=== PATIENT | female | born 1945 | race Caucasian/White ===

== ENCOUNTER 2018-11-02 06:01 | Day surgery (SDC) | payer OTHER, SELFPAY ==
[2018-10-29 12:46] VITALS: BMI 30.5
[2018-11-02] VITALS (8 sets, daily range): BP systolic 123–141; BP diastolic 42–78; PULSE 68–91; RESP 10–16; TEMP 36–36.8; O2SAT 93–96; BMI 30.5
[2018-11-02] MEDS: LACTATED RINGERS 1,000 ML 42 ML IV ×2 (07:10→09:48)
[2018-11-02] MEDS: CEFAZOLIN 2 GM/100 ML FROZ.PIGGY IV (08:00)
--- NOTE | 2018-11-02 08:00 | PM.PREOP ---
Pre-operative Note Interval Note Pre-op Check: Yes History & Physical Reviewed by Physician Changes: No
--- NOTE | 2018-11-02 08:43 | SUR.OPER ---
Beach chair with Shai/Nanda shoulder positioner. Lower body on padded OR bed. Head in foam padded head cradle, secured with straps. Non-operative arm secured <90 degrees abduction. Pillow under knees. Safety belt at thigh. Cloth tape over blanket over lower legs.
[2018-11-02] MEDS: BUPIVACAINE 0.5% W/ EPI (PF) VIAL 30 ML INJ (09:12)
--- NOTE | 2018-11-02 10:29 | PM.OP.1 ---
Operative Date/Time/Diagnoses Date of procedure: 11/02/18 Time of procedure: 08:33 Pre-op diagnosis: Massive rotator cuff tear right shoulder Post-op diagnosis: same Procedure & Clinicians Procedure: Arthroscopic subacromial decompression and distal clavicle excision with open rotator cuff repair Same procedure as scheduled: Yes Indications: Massive rotator cuff tear right shoulder Surgeon: Gen Chapa Glacing Machine Tender: Connie Sahu Anesthesia Type: General and Peripheral nerve block Operative Notes Findings: Massive rotator cuff tear involving all of the supraspinatus and infraspinatus with retraction beyond the rim of the glenoid. Some early stage arthritic changes to the glenohumeral joint. No sign of any loose bodies. No sign of any high riding humeral head. 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 Closure Type: primary Specimen(s): none sent Implants & Drains: One medial anchor and 3 lateral anchors were used. Applied: implant(s) Estimated Blood Loss (mL): 10 Blood products transfused: none Procedure in detail: On date of service, Patient was met in the holding area. The operative site was signed and witnessed by the OR staff. The surgeries once again discussed with the patient and any remaining questions they had were answered fully. Patient was taken back to the operating theater and placed on the operating table in a supine position. Great care was taken to ensure that all bony prominences were properly padded. Patient was then placed into the beach chair position. The head and neck were properly positioned and secured. A timeout was performed verifying patient's name, procedure, and the operative site. The upper extremity was then prepped and draped in the normal sterile fashion. Previously, the bony anatomy and portal sites were marked out as well as injected with Marcaine with epinephrine. An 11 blade was used to make an incision in the posterior aspect of the shoulder. The camera was placed, and a diagnostic shoulder scope was performed. Findings listed above. Next under direct visualization, a anterior portal was made. A shaver was brought in and Extensive debridement of the glenohumeral joint was performed. Patient had signs of fraying to the labrum. There is no sign of any instability to the glenohumeral joint. Next the camera was placed into the subacromial space. A lateral portal was obtained under direct visualization. A combination of the shaver and vapor wand, a debridement of the inflamed tissue as well as inflamed bursa was performed. The lateral gutter was also cleaned out. This gave us good visualization of the bursal aspect of the rotator cuff as well as the acromial arch. There was a large rotator cuff tear with significant retraction. A good portion of the humeral head was exposed. Next, a 6 mm bur was used to perform a subacromial decompression. The same bur was then used to do a distal clavicle excision. Due to the size of the rotator cuff tear was decided to switch to an open procedure. The anterior lateral portal was enlarged for a mini open repair. This gave us good visualization of the rotator cuff tear. 2. FiberWire was passed into 3 separate spots to be used as traction sutures. Liberator was used to continue to free up the rotator cuff tissue both bursal sided and articular sided. We were able to get good mobilization of the infraspinatus but the supraspinatus seemed to be more chronic tear and was really scarred in with very little excursion. In the tendon tissue was of poor quality and with pull apart when we apply traction using the grasper. This point it was decided to repair all of the infraspinatus and some of the posterior aspect of the supraspinatus but the majority of the supraspinatus was not repairable. A medial anchor was placed. It was preloaded with 6 suture strands. 2 strands were placed posteriorly and the other 2 were placed anteriorly into the infraspinatus. The final strands were then placed into the posterior aspect of the supraspinatus that we were able to mobilize. Using a grasper the rotator cuff was brought back to its point of insertion, this allowed us to tie down the anterior and posterior suture strands in a horizontal mattress fashion providing good fixation medially of the large rotator cuff tear. 2 of the posterior strands in 1 of the anterior strand were placed into 1 lateral anchor. The remaining strands from the anterior suture was then placed with the other 2 sutures in the most anterior insertion into the 2nd lateral anchor. This allowed a crisscross pattern for the lateral fixation helping us to recreate the rotator cuff footprint. This provided a partial coverage of the humeral head which was previously exposed. The shoulder was taken through range of motion and there was no sign of any remaining impingement lesions. The rotator cuff repair was tested using a probe and was felt to be very secure. Instruments were removed and the portal sites were closed. Patient's shoulder was cleaned, dried, dressed and she was taken to the PACU in stable condition. Complications: none Condition: stable Disposition: PACU Plan for aftercare: Standard postoperative protocol for rotator cuff repair
--- NOTE | 2018-11-02 11:20 | SUR.PHASEII ---
VS stable. IV patent. Occasional cough noted, lungs clear. Oral suction performed in PACU x1. Oral intake provided. Call light within reach. Drsg CDI, sling in place.
== END 2018-11-02 12:20 | disposition home or self-care (01) ==
PROVIDERS: PCP Family Medicine; Visit Provider Orthopaedic Surgery
PROC: (CPT 29827; principal; 2018-11-02 07:45)
PROC: (CPT 23412; 2018-11-02 07:45)
DX: S46.811A Strain of other muscles, fascia and tendons at shoulder and upper arm level, right arm, initial encounter (principal); M19.011 Primary osteoarthritis, right shoulder; M25.711 Osteophyte, right shoulder; I10 Essential (primary) hypertension; Z87.891 Personal history of nicotine dependence; W19.XXXA Unspecified fall, initial encounter
CPT/HCPCS: 23412; 29823; J0690; J1100; J2250; J2405; J2704; J3010

== ENCOUNTER → 2023-09-28 11:58 | Outpatient (CLI) | payer MEDICARE, OTHER, SELFPAY | PROVIDERS: PCP Nurse Practitioner; Referring Provider Internal Medicine Sleep Medicine; Visit Provider Internal Medicine Sleep Medicine | DX: R06.02 Shortness of breath (principal); Z87.891 Personal history of nicotine dependence; J98.8 Other specified respiratory disorders | CPT/HCPCS: 94060; 94726; 94729 ==

== ENCOUNTER → 2023-11-02 10:22 | Outpatient (CLI) | payer MEDICARE, OTHER, SELFPAY ==
--- NOTE | 2023-11-02 10:24 | DI.RAD.S_ITS ---
PROCEDURE: XR CHEST 2V INDICATIONS: Concern for pneumonia TECHNIQUE: 2 views of the chest were acquired. COMPARISON: None. FINDINGS: Surgical changes and devices: Right humeral head bone anchors. Lungs and pleura: Lungs are clear. No pleural effusions or pneumothorax. Mediastinum: Mediastinal contours are normal. Heart size is normal. Bones and chest wall: No suspicious bony abnormalities. Severe right shoulder joint degeneration. Soft tissues appear unremarkable. IMPRESSION: No acute cardiopulmonary abnormality is seen. Dictated by: Shanthi Garvey M.D. on 11/02/2023 at 17:09 Approved by: Shanthi Garvey M.D. on 11/02/2023 at 17:10
== END ==
PROVIDERS: PCP Nurse Practitioner; Referring Provider Internal Medicine Sleep Medicine; Visit Provider Internal Medicine Sleep Medicine
DX: J06.9 Acute upper respiratory infection, unspecified (principal); J00 Acute nasopharyngitis [common cold]; J45.40 Moderate persistent asthma, uncomplicated
CPT/HCPCS: 71046; 99214

== ENCOUNTER → 2024-05-07 17:11 | Outpatient (CLI) | payer MEDICARE, SELFPAY ==
--- NOTE | 2024-05-07 18:00 | DI.MRI.S_ITS ---
PROCEDURE: MR SHOULDER LT WO CON INDICATIONS: LEFT SHOULDER PAIN/EVAL L ROTATOR CUFF TEAR TECHNIQUE: Noncontrast oblique coronal T2 fast spin echo with fat saturation, oblique sagittal T1 spin echo and T2 fast spin echo with fat saturation, axial T1 spin echo and T2 fast spin echo with fat saturation through the shoulder. COMPARISON: [facility] [place], [place], XR SHOULDER 2+ VIEWS LEFT, 04/29/2024, 12:14. FINDINGS: Image quality: Excellent. Rotator cuff: There is thickening and heterogeneous signal intensity supraspinatus, infraspinatus and subscapularis consistent with tendinitis. There is interstitial tear in the supraspinatus, infraspinatus and subscapularis tendons. A small full-thickness perforation may be present at the junction of the supraspinatus and infraspinatus tendons. No tendon retraction or muscle atrophy. There is mild teres minor muscle atrophy. Bones and bursae: No bone marrow contusions or fractures. Moderate acromioclavicular and glenohumeral joint degeneration. The acromion demonstrates conventional anatomy, without an os acromiale. There is subacromial-subdeltoid fluid consistent with bursitis. Capsule and soft tissues: There is degenerative fraying of the superior labrum. The long head of the biceps tendon demonstrates normal location and morphology. The rotator interval appears normal, without fibrosis. The coracohumeral ligament is normal in thickness. Slightly prominent subcentimeter axillary lymph nodes are noted, nonspecific. IMPRESSION: 1. Supraspinatus, infraspinatus and subscapularis tendinitis. There is interstitial tear of the rotator cuff tendons. A focal full-thickness perforation may be present at the supraspinatus and infraspinatus junctions. No tendon retraction or muscle atrophy. 2. There is mild teres minor muscle atrophy, most likely related to rotator cuff tendinopathy. 3. Subacromial-subdeltoid bursitis. 4. Moderate acromioclavicular and glenohumeral arthrosis. 5. Degenerative superior labral fraying. Dictated by: Zeyad Sotelo M.D. on 05/08/2024 at 9:24 Approved by: Zeyad Sotelo M.D. on 05/09/2024 at 10:36
== END ==
LOC: MRI 17:12
PROVIDERS: PCP Nurse Practitioner; Referring Provider Orthopaedic Surgery; Visit Provider Orthopaedic Surgery
DX: M19.012 Primary osteoarthritis, left shoulder (principal); M75.112 Incomplete rotator cuff tear or rupture of left shoulder, not specified as traumatic; M77.8 Other enthesopathies, not elsewhere classified; M75.52 Bursitis of left shoulder; M25.512 Pain in left shoulder
CPT/HCPCS: 73221